=== PATIENT | male | born 1945 | race Hispanic/Latino ===

== ENCOUNTER 2019-05-28 07:00 | Observation (INO) | payer OTHER ==
[~2019-05-28] VITALS: Ht 185.4 cm; Wt 93.9 kg
[2019-05-28 15:42] VITALS: BP 138/72
[2019-05-28 15:59] LABS: APPEARANCE,URINE Cloudy (CLEAR); BILIRUBIN,URINE Negative (NEGATIVE); COLOR,URINE Yellow (YELLOW); GLUCOSE, URINE (UA) Negative (NEGATIVE); KETONES,URINE Negative (NEGATIVE); LEUKOCYTE ESTERASE ,URINE Negative (NEGATIVE); NITRATE,URINE Negative (NEGATIVE); OCCULT BLOOD,URINE Negative (NEGATIVE); PH,URINE 5.5 (5.0-8.0); PROTEIN,URINE Negative (NEGATIVE)
[2019-05-28] MEDS ORDERED: SITA25TA5 PO (16:09)
[2019-05-28] MEDS ORDERED: GARL1000 PO (16:09)
[2019-05-28] MEDS ORDERED: TAMS-1 PO (16:09)
[2019-05-28] MEDS ORDERED: METH10TA7 PO (16:09)
[2019-05-28] MEDS ORDERED: CALC-866 PO (16:09)
[2019-05-28] MEDS ORDERED: ICOS1CAP PO (16:09)
[2019-05-28] MEDS ORDERED: RAMI10CA69 PO (16:09)
[2019-05-28] MEDS ORDERED: SIME125C81 PO (16:09)
[2019-05-28] MEDS ORDERED: CARV12.511 PO (16:09)
[2019-05-28] MEDS ORDERED: PRED5TAB PO (16:09)
[2019-05-28] MEDS ORDERED: ABIR250T2 PO (16:09)
[2019-05-28] MEDS ORDERED: GABA-531 PO (16:09)
[2019-05-28 16:21] LABS: AMORPHOUS SEDIMENT,UR Moderate /LPF (None Seen); BACTERIA,URINE Rare /HPF (None Seen); RBC,URINE None Seen /HPF (0-1); SQUAMOUS EPITHELIAL CELL,UR None Seen /HPF (0-2); WBC,URINE None Seen /HPF (0-1)
[2019-05-29] VITALS (26 sets, daily range): BP systolic 113–155; BP diastolic 56–80
[2019-05-29] MEDS ORDERED: SODIUM CHLORIDE 0.9% 1000ML 1,000 ML IV ONE (09:07)
[2019-05-29] MEDS: CEFAZOLIN SODIUM 1 GM VIAL IVP SCH ×3 (09:20→20:49)
[2019-05-29] MEDS ORDERED: LIDOCAINE PF 2% 5ML ABBOJECT ONE (11:54)
[2019-05-29] MEDS ORDERED: PROPOFOL 10 MG/ML 20ML VIAL IV ONE ×2 (11:55→11:58)
[2019-05-29] MEDS ORDERED: ROCURONIUM 10MG/1ML SYR 10 MG/ML ML ONE (11:55)
[2019-05-29] MEDS ORDERED: MIDAZOLAM HCL 1 MG/ML 2ML VIAL ONE (11:55)
[2019-05-29] MEDS ORDERED: FENTANYL CITRATE PF 50 MCG/1 ML 2ML VIAL ONE ×2 (11:55→15:47)
[2019-05-29] MEDS ORDERED: CEFAZOLIN SODIUM 1 GM VIAL ONE ×2 (12:16→12:18)
[2019-05-29] MEDS ORDERED: ROPIVACAINE 0.5% 5MG/ML 30ML IJ ONE (12:46)
[2019-05-29] MEDS ORDERED: GLYCOPYRROLATE 1 MG/5 ML SYRINGE ONE (13:01)
[2019-05-29] MEDS ORDERED: NEOSTIGMINE 5MG/5ML SYR IV ONE (13:03)
[2019-05-29] MEDS ORDERED: ONDANSETRON HCL 4 MG/2 ML VIAL ONE (13:07)
[2019-05-29] MEDS: TRANEXAMIC ACID 1000MG/10ML ONE ×2 (13:10→15:51)
[2019-05-29] MEDS: SODIUM CHLORIDE 0.9% 1000ML 1,000 ML IV SCH ×2 (15:05→23:02)
[2019-05-29] MEDS ORDERED: KETOROLAC TROMETHAMINE 30MG/ML ONE (15:07)
[2019-05-29] MEDS ORDERED: LIDOCAINE HCL-MPF 1% 2ML VIAL IV PRN (15:15)
[2019-05-29] MEDS ORDERED: POTASSIUM CHLORIDE 20 MEQ ERTAB PO PRN (15:15)
[2019-05-29] MEDS ORDERED: FERROUS FUMARATE 324 MG TABLET PO PRN (15:15)
[2019-05-29] MEDS ORDERED: DiphenhydrAMINE HCL 50 MG/ML VIAL IVP PRN (15:15)
[2019-05-29] MEDS ORDERED: TRAMADOL HCL 50 MG TABLET PO PRN (15:15)
[2019-05-29] MEDS ORDERED: ONDANSETRON HCL 4 MG/2 ML VIAL IVP PRN (15:15)
[2019-05-29] MEDS ORDERED: TEMAZEPAM 15 MG CAPSULE PO PRN (15:15)
[2019-05-29] MEDS ORDERED: POTASSIUM CHLORIDE 10% ELIXIR 20 MEQ/15 ML UDCUP PO PRN (15:15)
[2019-05-29] MEDS ORDERED: OXYCODONE HCL 5 MG TAB PO PRN (15:15)
[2019-05-29] MEDS: ACETAMINOPHEN EXTRA STRENGTH 500 MG TABLET PO SCH ×2 (15:15→20:51)
[2019-05-29] MEDS ORDERED: KETOROLAC TROMETHAMINE 15MG/ML IV PRN (15:15)
[2019-05-29] MEDS ORDERED: POTASSIUM CHLORIDE 20MEQ/100ML 100 ML IV PRN (15:15)
[2019-05-29] MEDS ORDERED: MEPERIDINE-PF 25 MG/ML SYG ONE ×2 (15:57→16:10)
[2019-05-29] MEDS: INSULIN HUMULIN R 100 UNIT/ML 3ML SQ SCH ×2 (16:30→20:39)
--- NOTE | 2019-05-29 18:05 | NUR ---
RECEIVED PATIENT RECEIVED PATIENT S/P RIGHT TKA. RIGHT KNEE NIELS DRESSING PUMP LIGHT FLASHING RED INDICATING A LEAK. NIELS DRESSING EDGES APPEAR WRINKLED TOO. UNABLE TO SMOOTH OUT NIELS DRESSING, APPLIED REINFORCEMENT DRESSING SECURELY AROUND PERIMETER OF NIELS DRESSING, NIELS PUMP STILL FLASHING RED. REMOVED NIELS DRESSING, RIGHT KNEE INCISION APPROXIMATED WITH SMALL AMOUNT OF SANGUINEOUS DRAINAGE NOTED. APPLIED NEW NIELS DRESSING RIGHT KNEE, PUMP NOW FLASHING GREEN. REAPPLIED MORALES BANDAGE OVER RLE. INFORMED DR. AQUINO THAT PATIENT WAS RECEIVED WITH NIELS DRESSING INDICATING LEAK AND I HAD TO CHANGE NIELS DRESSING. DR. AQUINO REPLIED THAT IF INCREASED DRAINAGE NOTED TO NIELS DRESSING, OKAY TO REMOVE DRESSING, APPLY STERI-STRIPS OVER SURGICAL SITE AND APPLY NEW DRESSING.
--- NOTE | 2019-05-29 20:00 | NUR ---
ASSESSMENT NOTE PATIENT AWAKE, ALERT, OX3, NO SOB, NO C/O PAIN AT THIS TIME, ENCOURAGE DEEP BREATHING EXERCISES , IVF INFUSING WELL TO LEFT HAND 20 GAUGE CATHETER, TEACH PATIENT PLAN OF CARE,PAIN MANAGEMENT AND EXPECTED OUTCOME , PATIENT VERBALIZES UNDERSTANDING VIA TEACH BACK
[2019-05-29] MEDS: GABAPENTIN 300 MG CAPSULE PO SCH (20:41)
[2019-05-29] MEDS: TAMSULOSIN HCL 0.4 MG CAP.ER.24H PO SCH (20:41)
[2019-05-29] MEDS: CARVEDILOL 12.5 MG TABLET PO SCH (20:41)
[2019-05-29] MEDS: ASPIRIN 81MG TAB.CHEW PO SCH (20:49)
[2019-05-29] MEDS: OXYCODONE HCL 5 MG TAB PO PRN (20:49)
[2019-05-29] MEDS: CELECOXIB 200 MG CAP PO SCH (20:49)
[2019-05-29] MEDS ORDERED: PREGABALIN 25 MG CAP PO SCH (21:00)
[2019-05-30] VITALS (7 sets, daily range): BP systolic 110–133; BP diastolic 50–76
--- NOTE | 2019-05-30 00:05 | NUR ---
FRANCES DANIELS PATIENT AT BEDSIDE, TOLERATED WELL, BACK TO BED, RIGHT KNEE WITH NIELS DRESSING NEGATIVE PRESSURE
[2019-05-30 04:16] LABS: HEMATOCRIT 32.5 % (42-54); MEAN CORPUSCULAR HEMOGLOBIN 28.9 pg (27.0-33.0); MEAN CORPUSCULAR HGB CONC 31.7 g/dL (32.0-36.0); MEAN CORPUSCULAR VOLUME 91.3 fL (79-99); PLATELET COUNT (AUTO) 119 K/uL (130-400); RED BLOOD CELL COUNT(AUTO) 3.56 MIL/uL (4.50-6.20); RED CELL DISTRIBUTION WIDTH 13.2 % (11.0-15.5); WHITE BLOOD COUNT (AUTO) 6.6 K/uL (4.8-10.8)
[2019-05-30] MEDS: CEFAZOLIN SODIUM 1 GM VIAL IVP SCH (04:20)
[2019-05-30] MEDS: ACETAMINOPHEN EXTRA STRENGTH 500 MG TABLET PO SCH ×3 (04:21→23:30)
[2019-05-30 04:23] LABS: CREATININE 0.9 mg/dL (0.5-1.5); POTASSIUM 4.2 mmol/L (3.5-5.1)
[2019-05-30] MEDS: INSULIN HUMULIN R 100 UNIT/ML 3ML SQ SCH ×4 (05:48→20:10)
[2019-05-30] MEDS: ABIRATERONE ACETATE 1000 MG PO SCH (06:48)
[2019-05-30] MEDS: PREDNISONE 5 MG TABLET PO SCH (06:49)
[2019-05-30] MEDS: OXYCODONE HCL 5 MG TAB PO PRN (08:02)
[2019-05-30] MEDS: Ramipril 10 MG PO SCH ×2 (09:00→20:13)
[2019-05-30] MEDS: GABAPENTIN 300 MG CAPSULE PO SCH ×2 (09:00→20:13)
[2019-05-30] MEDS: TAMSULOSIN HCL 0.4 MG CAP.ER.24H PO SCH ×2 (09:00→20:13)
[2019-05-30] MEDS: ICOSAPENT ETHYL PO SCH ×2 (09:00→20:11)
[2019-05-30] MEDS: METHIMAZOLE 10 MG TAB PO SCH (09:00)
[2019-05-30] MEDS: CALCIUM CARBONATE 500 MG TABLET PO PRN ×2 (10:14→21:03)
[2019-05-30] MEDS: CELECOXIB 200 MG CAP PO SCH ×2 (10:14→20:12)
[2019-05-30] MEDS: ASPIRIN 81MG TAB.CHEW PO SCH ×2 (10:14→20:12)
[2019-05-30] MEDS: POLYETHYLENE GLYCOL 3350 17 GM POWD.PACK PO SCH (10:14)
[2019-05-30] MEDS: PANTOPRAZOLE SODIUM 40 MG TABLET.DR PO SCH (10:14)
[2019-05-30] MEDS: SODIUM CHLORIDE 0.9% 1000ML 1,000 ML IV SCH (10:23)
--- NOTE | 2019-05-30 10:39 | NUR ---
DCP CM met with pt discussed dc plans. Pt is independent prior to surgery, lives at home with spouse and son. Pt verbalized he has a nebulizer that's old and has not been used for a long time. Denies any other equipments/services. Pt verbalized son and spouse able to assist with transportation as necessary. Discussed MD recommendations for short term rehab, pt agreeable verbalized he had toured [facility] last week, [facility] signed for [facility]. DC plan to SNF. CM to cont to follow up. Addendum: 05/30/19 at 1042 by ELSA JOSEPH LVN CM Amended: Links added.
--- NOTE | 2019-05-30 10:42 | NUR ---
CM Note: [facility] pending approval Faxed order, clinicals, PT, and [facility] to [facility], confirmation received. Spoke to Roxanne will come eval pt today, aware outpatient procedure, dcp for today/once approved. Pt pending approval. EMS arranged and faxed for today in case pt will need, able to sit on chair w/PT today, primary nurse to call [facility] once pt ready to DC. Primary nurse aware. CM to cont to follow up.
--- NOTE | 2019-05-30 12:30 | NUR ---
CHANGED NIELS DRESSING NOTED THAT RIGHT KNEE NIELS DRESSING HAD LARGE AMOUNT OF SANGUINOUS DRAINAGE TO LOWER HALF PORTION OF NIELS DRESSING. REMOVED NIELS DRESSING, CLEANSED RIGHT KNEE INCISION WITH BETADINE, APPLIED STERI-STRIPS RIGHT KNEE INCISION THAT APPEARED TO BE SOURCE DRAINAGE. APPLIED NEW NIELS DRESSING, PUMP FLASHING GREEN. PATIENT TOLERATED DRESSING CHANGE WELL.
--- NOTE | 2019-05-30 15:01 | NUR ---
1415 had pt sign HALL Letter,faxed to [phone] and placed in chart under consent tab
[2019-05-30] MEDS: CARVEDILOL 12.5 MG TABLET PO SCH (20:13)
[2019-05-30] MEDS ORDERED: SIMETHICONE 125 MG PO SCH (21:00)
[2019-05-31 04:46] VITALS: BP 119/60
[2019-05-31] MEDS: ABIRATERONE ACETATE 1000 MG PO SCH (06:01)
[2019-05-31] MEDS: PREDNISONE 5 MG TABLET PO SCH (06:02)
[2019-05-31] MEDS: ACETAMINOPHEN EXTRA STRENGTH 500 MG TABLET PO SCH ×2 (06:04→15:35)
[2019-05-31] MEDS: INSULIN HUMULIN R 100 UNIT/ML 3ML SQ SCH ×3 (06:04→16:30)
[2019-05-31 08:00] VITALS: BP 129/75
[2019-05-31] MEDS: METHIMAZOLE 10 MG TAB PO SCH (08:13)
[2019-05-31] MEDS: GABAPENTIN 300 MG CAPSULE PO SCH (08:16)
[2019-05-31] MEDS: CELECOXIB 200 MG CAP PO SCH (08:16)
[2019-05-31] MEDS: PANTOPRAZOLE SODIUM 40 MG TABLET.DR PO SCH (08:17)
[2019-05-31] MEDS: OXYCODONE HCL 5 MG TAB PO PRN ×2 (08:18→13:12)
[2019-05-31] MEDS: ASPIRIN 81MG TAB.CHEW PO SCH (08:19)
[2019-05-31] MEDS: TAMSULOSIN HCL 0.4 MG CAP.ER.24H PO SCH (08:19)
[2019-05-31] MEDS: POLYETHYLENE GLYCOL 3350 17 GM POWD.PACK PO SCH (08:20)
[2019-05-31] MEDS: Ramipril 10 MG PO SCH (08:23)
[2019-05-31] MEDS: ICOSAPENT ETHYL PO SCH (08:23)
--- NOTE | 2019-05-31 09:56 | NUR ---
CM Note: [facility] pending ins auth CM spoke to Roxanne arias/[facility], pt still pending ins auth at this time. Pt safe to transfer via [facility] transport van once approved. Primary nurse aware. CM to cont to follow up.
[2019-05-31 11:00] VITALS: BP 117/57
--- NOTE | 2019-05-31 12:22 | NUR ---
CM Note: [facility] ins auth CM spoke to Roxanne arias/[facility], pt has ins auth. Pt safe to transfer via [facility] transport van once MD clear. Primary nurse aware. CM to cont to follow up.
[2019-05-31 16:00] VITALS: BP 111/66
[2019-05-31] MEDS ORDERED: HYDR-4457 PO (18:51)
[2019-05-31] MEDS ORDERED: ASPI-1005 PO (18:51)
--- NOTE | 2019-05-31 19:37 | NUR ---
d/c report called earlier to [facility]; chart copied and scripts placed in chart; iv access removed; pt stated understanding of all d/c instructions for after care for a knee replacement ; discussed follow up, wound care, perscriptions, activity level.
--- NOTE | 2019-05-31 19:45 | NUR ---
discharge discharged to [facility] via wheel chair with [facility] service liaison representative accompanied by patients family, pain at discharge 0
[2019-06-01] MEDS ORDERED: BISACODYL 10 MG SUPP.RECT RC PRN (15:15)
== END 2019-05-31 19:45 ==
LOC: EDSTATUS 07:00 → DAHIP 05-29 08:25 → 4AH 05-29 17:35
PROVIDERS: ADMIT Orthopaedic Surgery; ATTEND Orthopaedic Surgery
DX: M17.11 Unilateral primary osteoarthritis, right knee (principal); S83.241A Other tear of medial meniscus, current injury, right knee, initial encounter; M24.561 Contracture, right knee; R26.9 Unspecified abnormalities of gait and mobility; I10 Essential (primary) hypertension; E78.00 Pure hypercholesterolemia, unspecified; C61 Malignant neoplasm of prostate; Z90.49 Acquired absence of other specified parts of digestive tract; Z95.828 Presence of other vascular implants and grafts; Z79.899 Other long term (current) drug therapy; Z99.89 Dependence on other enabling machines and devices; X58.XXXA Exposure to other specified factors, initial encounter; Y93.89 Activity, other specified; Y92.89 Other specified places as the place of occurrence of the external cause
CPT/HCPCS: 27447; 36415; 80048; 81001; 82948 ×10; 85027; 87641; 88304; 88311; 96372 ×2; 96374; 96375; 96376; 97039 ×2; 97116 ×4; 97161; 97530 ×3; A4213; A4215; A4221; A4222; A4223; A4600; A4649 ×5; A4663; A4930 ×4; A5120 ×2; A6223; A9272; C1763; C1776; G0378 ×51; G8978; G8979; G8980; G8981; G8982; G8983; J0690 ×5; J1815 ×3; J1885 ×2; J2001; J2175 ×2; J2250; J2405; J2704 ×2; J2710; J2795; J3010 ×2; J3490 ×2; J7030; J7120